=== PATIENT | female | born 1930 | race Caucasian/White ===

== ENCOUNTER 2018-10-16 17:37 | Emergency (ER) | payer OTHER ==
[~2018-10-16] VITALS: Ht 152.4 cm; Wt 59.0 kg
[2018-10-16] MEDS ORDERED: VERAPAMIL ER240 MG (17:42)
[2018-10-16] MEDS ORDERED: IRBESARTAN-HCT1 EACH (17:42)
[2018-10-16] MEDS ORDERED: ISOSORBIDE DINI20 MG (17:43)
[2018-10-16] MEDS ORDERED: CARVEDILOL25 MG (17:43)
[2018-10-16] MEDS ORDERED: [UNRECOGNIZED DRUG - OTHER] (17:44)
[2018-10-16] MEDS ORDERED: FUROSEMIDE (17:46)
[2018-10-16] MEDS ORDERED: COZAAR100 MG (17:46)
== END 2018-10-16 22:11 | disposition home or self-care (01) ==
LOC: ER 17:37
DX: R42 Dizziness and giddiness (principal)

== ENCOUNTER 2019-02-08 10:33 | Outpatient (CLI) | payer OTHER ==
[~2019-02-08 10:33] MED LIST: CARVEDILOL25 MG; COZAAR100 MG; FUROSEMIDE; IRBESARTAN-HCT1 EACH; ISOSORBIDE DINI20 MG; VERAPAMIL ER240 MG; [UNRECOGNIZED DRUG - OTHER]
== END 2019-02-08 15:39 | disposition home or self-care (01) ==
LOC: TOM 10:33
DX: R42 Dizziness and giddiness (principal); R51 Headache